=== PATIENT | male | born 1970 | race African-American/Black ===

== ENCOUNTER 2016-10-15 08:32 | Emergency (ER) | payer BC ==
--- NOTE | ~2016-10-15 | CR2 ---
[facility] A Service of [facility] RADIOLOGY TEXT RESULTS PATIENT: DANAE NASH LOCATION: [place] : 72 UNIT #: [id number] AGE: [address]: Yandy Bullock SEX: M ORDER DR: [id number] [place] [id number] [facility]. [place], [place] [address] [id number] E MR#: [id number] Acc #: [id number] NAME: DANAE NASH : 1970 SEX: M STUDY DATE/TIME: 10/15/2016 UNIT: [place] ROOM: STUDY DESCRIPTION: CR Abdomen Acute Series Attending Physician: Yandy Bullock Pa-C Ordering Physician: [facility] Primary Care Physician: Zaki Saavedra M.D. MEDICAL IMAGING REPORT This report is preliminary unless electronic signature is present EXAM Acute abdomen series 10/15/2016, 09:45 hours CLINICAL HISTORY 46-year-old man complaining of 4-day history of mid to lower abdominal pain with nausea and diarrhea. COMPARISON Chest film 04/19/2004 FINDINGS Upright view of the chest demonstrates normal cardiac, mediastinal and hilar contours. The lungs are clear and there are no effusions. Supine and upright views of the abdomen are somewhat limited by large body habitus. There is no definite obstruction or dilatation. No suspicious calcifications. IMPRESSION 1. No acute findings in the chest. 2. Images of the abdomen are limited by large body habitus. There is no evidence of bowel distension or obstruction. No suspicious calcifications are seen. Dictated by... Sandra Cope M.D. THIS IS AN ELECTRONICALLY VERIFIED REPORT Sandra Cope M.D. at 10/15/2016 2:30 PM SMM/cmm TD: 10/15/2016 11:07 JOB #: [id number] [facility] A Service of [facility] RADIOLOGY TEXT RESULTS PATIENT: DANAE NASH LOCATION: [place] : 72 UNIT #: [id number] AGE: [address]: Yandy Bullock SEX: M ORDER DR: MEDICAL IMAGING REPORT Page 1 of 1 COPY
--- NOTE | ~2016-10-15 | CT2 ---
[facility] A Service of [facility] RADIOLOGY TEXT RESULTS PATIENT: DANAE NASH LOCATION: [facility] : 71 UNIT #: [id number] AGE: [address]: Yandy Bullock SEX: M ORDER DR: [id number] [facility] [address] [place], [place] [address] [id number] E MR#: [id number] Acc #: [id number] NAME: DANAE NASH : 1970 SEX: M STUDY DATE/TIME: 10/15/2016 11:19 UNIT: [facility] ROOM: STUDY DESCRIPTION: CT Abd and Pelv W Cont Attending Physician: Yandy Bullock Pa-C Ordering Physician: Ed Doctor [id number] [facility] Primary Care Physician: Zaki Saavedra M.D. MEDICAL IMAGING REPORT This report is preliminary unless electronic signature is present EXAM CT abdomen and pelvis with contrast 10/15/2016 1119 hours HISTORY Upper abdominal pain with vomiting for 3 days. Epigastric pain with nausea. COMPARISON Abdomen series 10/15/2016. No prior CT scan. TECHNIQUE Dynamic helical CT images were obtained from the lung bases through the pubic symphysis with intravenous contrast only. Isovue-370 100 mL. Sagittal and coronal reconstructions were performed. Total exam DLP 3242 mGy-cm. This CT examination was performed with one or more of the following radiation dose reduction techniques: automatic exposure control, adjustment of mA and/or kV according to patient size, and iterative reconstruction. FINDINGS Images through the lung bases demonstrate some respiratory motion artifact. There is no evidence of pneumonia, edema or effusion. The distal esophagus is normal. Images through the abdomen demonstrate diffuse low attenuation of the liver relative to the spleen suggesting fatty infiltration. There is no focal liver lesion. The spleen, pancreas, gallbladder and bile ducts are normal. The adrenal glands are normal. There is a very small exophytic 1.2 cm lesion from the lower pole right kidney measuring only 12 Hounsfield units likely a cyst. The left kidney contains a low-density lesion in the posterior upper pole measuring 1.8 cm and 11 Hounsfield units likely a cyst. There are no renal or ureteral STS. [facility] A Service of [facility] RADIOLOGY TEXT RESULTS PATIENT: DANAE NASH LOCATION: [facility] : 72 UNIT #: [id number] AGE: [address]: Yandy Bullock SEX: M ORDER DR: calculi. The bladder is normal. The stomach is contracted and unopacified but appears normal. There is no small bowel distension or small bowel wall thickening. The appendix is normal. The colon demonstrates no distension or wall thickening. There is no evidence of an increased amount of stool. Distal colon is decompressed. CT pelvis demonstrates a normal appearance to the bladder, seminal vesicles and prostate. There is a fat density left inguinal hernia and a very small fat density periumbilical hernia. There is no bowel involvement. No acute bone lesions. There is facet arthropathy in the lower lumbar levels with no fracture or malalignment. IMPRESSION 1. Fatty change in the liver with no focal liver lesion. The gallbladder, bile ducts and pancreas are normal. 2. The stomach, small bowel, cecum, appendix and colon are normal. There is no distension or increased stool seen. 3. No renal or ureteral calculi. 4. There are small fat density hernias at the left inguinal region at the umbilicus. There is no bowel involvement. 5. There are small low attenuation lesions on both kidneys with density measurements most consistent with benign simple cysts. 6. There is lower lumbar facet arthropathy. There is no fracture or disc height loss. Dictated by... Sandra Cope M.D. THIS IS AN ELECTRONICALLY VERIFIED REPORT Sandra Cope M.D. at 10/15/2016 2:30 PM PAM/larry TD: 10/15/2016 12:43 JOB #: [id number] MEDICAL IMAGING REPORT Page 1 of 1 COPY
[2016-10-15 09:21] LABS: BASOPHIL% 0.2 % (0-2.5); EOSINOPHIL# 0.1 X10e3 (0-0.7); EOSINOPHIL% 1.7 % (0.0-7.0); HEMOGLOBIN 14.4 gm/dL (13.0-16.0); LYMPHOCYTE# 3.2 X10e3 (1.0-3.5); LYMPHOCYTE% 45.5 % (17.0-45.0); MEAN CELL VOLUME 93.2 FL (83-96); MEAN CORPUSCULAR HEMOGLOBIN 29.8 PG (28-34); MEAN CORPUSCULAR HGB CONC 31.9 g/dL (30-36); MEAN PLATELET VOLUME 8.1 FL (6.5-11.5); MONOCYTE# 0.5 X10e3 (0-1.0); MONOCYTE% 6.7 % (3.0-12.0); NEUTROPHIL# 3.3 X10e3 (1.5-7.1); NEUTROPHIL% 45.9 % (40-75); PLATELET COUNT 284 X10e3 (140-420); RED BLOOD COUNT 4.83 X10e (3.90-5.60); RED CELL DISTRIBUTION WIDTH 15.1 % (11.0-15.5); WHITE BLOOD COUNT 7.1 X10e3 (4.0-10.5)
[2016-10-15 09:22] LABS: DIFF IND NO
[2016-10-15 09:47] LABS: ALBUMIN SERUM 3.9 g/dL (3.5-5.0); BILIRUBIN, DIRECT 0.1 mg/dL (0.0-0.2); BILIRUBIN,INDIRECT 0.5 mg/dL (0.0-0.9); BILIRUBIN,TOTAL 0.6 mg/dL (0.2-2.0); BUN/CREATININE RATIO 11.25; CALCIUM SERUM 8.7 mg/dL (8.4-10.2); CREATININE SERUM 0.8 mg/dL (0.6-1.4); GLOM FILT RATE Estimated 107.9 mL/min (>60); POTASSIUM 3.9 mmol/L (3.5-5.1); PROTEIN TOTAL SERUM 7.7 g/dL (6.0-8.3)
== END 2016-10-15 12:55 | disposition home or self-care (01) ==
LOC: CED 08:32
DX: K29.00 Acute gastritis without bleeding (principal); Z90.89 Acquired absence of other organs; F17.200 Nicotine dependence, unspecified, uncomplicated
CPT/HCPCS: 36415; 74022; 74177; 80048; 80076; 83690; 85025; 86677; 96361; 96374; 99284; J2405; Q9967